=== PATIENT | male | born 1950 ===

== ENCOUNTER 2024-02-19 08:00 | Outpatient (CLI) | payer OTHER ==
[~2024-02-19] VITALS: Ht 167.6 cm; Wt 83.9 kg
[2024-02-19 08:16] LABS: HEMATOCRIT 40.6 % (39.0-48.0); HEMOGLOBIN 13.5 g/dL (13-16.00); MEAN CELL VOLUME 86.5 fL (80.0-100.00); MEAN CORPUSCULAR HEMOGLOBIN 28.7 pg (27.00-32.0); MEAN CORPUSCULAR HGB CONC 33.2 g/dl (32.0-36.0); PLATELET COUNT 179 K/uL (150-450); RED CELL DISTRIBUTION WIDTH 15.4 % (11.5-14.5)
[2024-02-19 08:20] LABS: PH,URINE 7.5 (5.0-8.0); URINE APPEARANCE Clear; URINE BILIRRUBIN Negative (NEGATIVE); URINE BLOOD Small; URINE COLOR Yellow; URINE GLUCOSE Negative (NEGATIVE); URINE LEUKOCYTE Large; URINE NITRATE Positive; URINE PROTEIN 30 (NEGATIVE); URINE UROBILINOGEN 0.2 E.U./dl
[2024-02-19 08:22] LABS: URINE RBC 21.5 uL (0.0-20.8); URINE WBC 518.2 uL (0.0-23.2)
[2024-02-19 08:28] LABS: URINE EPITHELIAL CELLS 0.9 uL (0.0-38.8)
[2024-02-19 08:39] LABS: INR 1.02
[2024-02-19 08:43] LABS: ALBUMIN 3.9 gm/dL (3.4-5.0); BILIRUBIN TOTAL 0.55 mg/dL (0.3-1.2); CREATININE SERUM 2.29 mg/dL (0.70-1.30); GLOBULINA 3.9 G/DL (2.4-3.5); POTASSIUM 5.72 mEq/L (3.5-5.1); TOTAL PROTEIN 7.8 gm/dL (6.4-8.2)
[2024-02-19 08:47] LABS: PROTHROMBIN TIME 10.7 SECONDS (9.0-11.5)
[2024-02-19] MEDS ORDERED: COZAAR25 MG PO (08:47)
[2024-02-19] MEDS ORDERED: LIPITOR20 MG PO (08:47)
[2024-02-19] MEDS ORDERED: HUMALOG100 UNIT/2 (08:48)
[2024-02-19] MEDS ORDERED: OMEPRAZOLE-BIC1 EAC1 PO (08:48)
[2024-02-19] MEDS ORDERED: BREZTRI AEROS10.7 GM IH (08:49)
[2024-02-19] MEDS ORDERED: LANTUS SOL100 UNIT/1 (08:49)
[2024-02-19] MEDS ORDERED: ASTEPRO AL205.5 MCG/ (08:50)
[2024-02-19] MEDS ORDERED: MIRTAZAPINE45 M1 PO (08:50)
[2024-02-19] MEDS ORDERED: VELTASSA8.4 GM PO (12:07)
== END 2024-02-19 08:01 | disposition home or self-care (01) ==
LOC: RAD 08:00 → ADM 08:30 → EDSTATUS 02-26 08:30 → CIR.AMB 02-26 08:30
PROVIDERS: ATTEND Surgery
DX: K64.2 Third degree hemorrhoids (principal); K62.89 Other specified diseases of anus and rectum; K62.5 Hemorrhage of anus and rectum; K64.4 Residual hemorrhoidal skin tags; I10 Essential (primary) hypertension